=== PATIENT | female | born 1995 | race African-American/Black ===

== ENCOUNTER → 2022-10-31 | Outpatient (CLI) | payer MEDICAID | LOC: RAD 14:35 → VAS 14:35 | DX: R00.2 Palpitations (principal) ==

== ENCOUNTER 2023-05-21 23:15 | Emergency (ER) | payer MEDICAID ==
[~2023-05-21] VITALS: Ht 172.7 cm; Wt 186.0 kg
[~2023-05-21 23:15] MED LIST: DEPAKOTE DR500 MG PO; HYDROXYZINE HYD50 M1 PO; ONDANSETRON ODT8 MG PO; PROAIR HFA0.09 MG/AC IH; PROTONIX TR40 M1 PO; REMERON15 MG PO; WEGOVY0.5 MG/0.5 SQ
[2023-05-22 00:06] LABS: BASO # 0.03 K/mm3 (0.02-0.10); EOS # 0.07 K/mm3 (0.04-0.40); EOS % 0.7 % (1.0-5.0); HEMATOCRIT 43.9 % (37.0-47.0); HEMOGLOBIN 13.8 g/dL (12.5-16.0); MEAN CELL VOLUME 79 fl (78-100); MEAN CORPUSCULAR HEMOGLOBIN 25 pg (27-31); MEAN CORPUSCULAR HGB CONC 31 g/dL (33-37); MEAN PLATELET VOLUME 9.2 fl (7.4-10.4); MONO # 0.51 K/mm3 (0.20-0.80); NEU # 7.73 K/mm3 (1.40-6.50); PLATELET COUNT 430 K/mm3 (130-400); RED BLOOD COUNT 5.53 M/mm3 (4.10-5.30); RED CELL DISTRIBUTION WIDTH 13.7 % (11.5-14.5); WHITE BLOOD COUNT 9.6 K/mm3 (4.8-10.8)
[2023-05-22 00:14] LABS: ALBUMIN 4.3 g/dL (3.5-5.0); POTASSIUM 4.7 mmol/L (3.5-5.1)
[2023-05-22 00:15] LABS: CALCIUM 9.9 mg/dL (8.3-10.5)
[2023-05-22 00:17] LABS: TOTAL PROTEIN 8.5 g/dL (6.4-8.3)
[2023-05-22 00:18] LABS: TOTAL BILIRUBIN 0.3 mg/dL (0.2-1.2)
[2023-05-22 00:20] LABS: URINE APPEARANCE CLOUDY; URINE BILIRUBIN NEGATIVE (NEGATIVE); URINE BLOOD TRACE (NEGATIVE); URINE COLOR YELLOW; URINE GLUCOSE NEGATIVE (NEGATIVE); URINE KETONE NEGATIVE (NEGATIVE); URINE LEUKOCYTE ESTERASE 2+ (NEGATIVE); URINE MUCUS PRESENT (NOT PRESENT); URINE NITRATE NEGATIVE (NEGATIVE); URINE PROTEIN(semi-quant) TRACE (NEGATIVE); URINE UROBILINOGEN NORMAL (NORMAL)
[2023-05-22] MEDS ORDERED: ONDANSETRON HYDR4 MG PO (01:16)
[2023-05-22] MEDS ORDERED: CEPHALEXIN500 M2 PO (01:16)
[2023-05-22] MEDS ORDERED: PROTONIX TR40 M1 PO (01:16)
[2023-05-22 02:15] VITALS: BP 126/67
== END 2023-05-22 02:15 | disposition home or self-care (01) ==
LOC: ED 23:15
PROVIDERS: Physician Assistant
DX: K29.70 Gastritis, unspecified, without bleeding (principal); R79.89 Other specified abnormal findings of blood chemistry; Z28.310 Unvaccinated for COVID-19
CPT/HCPCS: J0696; J1200; J1885; J2550; J7030